=== PATIENT | male | born 1985 | race African-American/Black ===

== ENCOUNTER 2024-08-09 12:54 | Emergency (ER) | payer MEDICAID ==
[~2024-08-09] VITALS: Ht 170.2 cm; Wt 67.0 kg
[2024-08-09 12:56] VITALS: TEMP 36.3; O2SAT 99
[2024-08-09 14:50] VITALS: TEMP 97.3
[2024-08-09] MEDS: HYDROCODONE/ACETAMINOPHEN 5/325MG TABLET PO ONE (14:50)
[2024-08-09] MEDS: ACETAMINOPHEN 325MG TABLET PO ONE (14:50)
[2024-08-09] MEDS: ONDANSETRON 4MG ODT PO ONE (14:50)
[2024-08-09] MEDS: METOCLOPRAMIDE HCL 10MG/2ML VIAL IV ONE (16:02)
[2024-08-09] MEDS: MORPHINE SULFATE 2 MG/ML INJ (NOT FOR IM USE) IV ONE (16:02)
[2024-08-09 16:31] LABS: BASOPHILS % 0.2 % (0.0-2.0); EOSINOPHILS % 0.1 % (0.0-5.0); HEMATOCRIT. 45.8 % (42.0-52.0); HEMOGLOBIN. 14.9 g/dL (14.0-18.0); LYMPHOCYTES % 11.4 % (20.0-50.0); MEAN CORPUSCULAR HEMOGLOBIN 31.5 pg (28.0-32.0); MEAN CORPUSCULAR HGB CONC 32.4 g/dL (31.0-37.0); MEAN PLATELET VOLUME 11.3 fl (7.4-10.4); MONOCYTES % 2.4 % (2.0-8.0); NEUTROPHILS % 85.9 % (40.0-76.0); PLATELET 114 x1000/uL (130-400); RED BLOOD CELL COUNT 4.72 mill/uL (4.7-6.1); RED CELL DISTRIBUTION WIDTH 13.2 % (11.6-14.6); WHITE BLOOD COUNT 13.8 x1000/uL (4.5-11.0)
[2024-08-09 16:40] LABS: PARTIAL THROMBOPLASTIN TIME 26.9 sec (23.4-31.0)
[2024-08-09 16:52] LABS: CHLORIDE 104 mEq/L (98-107); POTASSIUM 3.6 mEq/L (3.5-5.1); SODIUM 140 mEq/L (136-145)
[2024-08-09 16:53] LABS: CALCIUM 9.5 mg/dL (8.7-10.4); CARBON DIOXIDE 25 mEq/L (21-32)
[2024-08-09 16:58] LABS: CREATININE 0.8 mg/dL (0.6-1.3); GLUCOSE 93 mg/dL (70-105); UREA NITROGEN BLOOD 8 mg/dL (9-23)
[2024-08-09 17:00] LABS: ALANINE AMINOTRANSFERASE 28 IU/L (10-49); ALBUMIN 4.2 g/dL (3.2-4.8); ASPARTATE AMINOTRANSFERASE 26 IU/L (<34); BILIRUBIN TOTAL 0.5 mg/dL (0.1-1.0); PROTEIN TOTAL 7.5 g/dL (6.0-8.3)
[2024-08-09 17:05] VITALS: BP 133/79; PULSE 57; RESP 18
[2024-08-09] MEDS: KETOROLAC 15MG/ML VIAL IV ONE (17:05)
[2024-08-09] MEDS ORDERED: IBUP-2029 MT (17:05)
== END 2024-08-09 17:25 | disposition home or self-care (01) ==
LOC: ER 12:54 → EDBEDREQ 15:38 → ER 17:25
DX: S09.90XA Unspecified injury of head, initial encounter (principal); Z98.2 Presence of cerebrospinal fluid drainage device; Z79.899 Other long term (current) drug therapy; W01.0XXA Fall on same level from slipping, tripping and stumbling without subsequent striking against object, initial encounter; Y93.89 Activity, other specified; Y92.89 Other specified places as the place of occurrence of the external cause; Y99.8 Other external cause status
CPT/HCPCS: 99285; 96374; 70450; 71045; 96375; 80053; 85025; 85610; 85730; 86850; 86900; 86901; 36415; 70250; 74018; Q0162; J2765; J2270